=== PATIENT | female | born 1990 | race Caucasian/White ===

== ENCOUNTER 2020-04-01 10:01 | Emergency (ER) | payer OTHER, SELFPAY ==
[2020-04-01 10:18] VITALS: BP 131/86; PULSE 86; RESP 16; TEMP 36.8; O2SAT 100
--- NOTE | 2020-04-01 10:41 | ED.WOUNDLAC ---
HPI - Wound/Laceration General Chief Complaint: Wound/Laceration Stated Complaint: cut right 4th finger Time Seen by Provider: 04/01/20 10:41 Source: patient and RN notes reviewed Mode of arrival: ambulatory Limitations: no limitations History of Present Illness HPI narrative: This is a 29 years old female presents to the office for an evaluation of finger laceration prior to arrival. She accidentally cut her finger with a toe trimmer this morning. She able to move her finger. Denies any other injury/trauma. TD up to date. Related Data Home Medications Medication Instructions Recorded Confirmed norethindrone-e.estradiol-iron [Lo 1 tablet DAILY 04/01/20 04/01/20 Loestrin Fe] Allergies Allergy/AdvReac Type Severity Reaction Status Date / Time No Known Allergies Allergy Verified 04/01/20 10:06 Review of Systems Review of Systems: Narrative: CONSTITUTIONAL: Denies fever or feeling ill CARDIOVASCULAR: Denies palpitation RESPIRATORY: Denies dyspnea GASTROINTESTINAL: Denies nausea SKIN: reports cut to her fourth ring finger MUSCULOSKELETAL: Reports finger pain; however she able to move her finger NEUROLOGIC: Denies numbness. [facility] Family History Family History Father Hypertension Other Diabetes mellitus Family history of malignant neoplasm of breast in first degree relative Social History Social History Smoking status: Never smoker Alcohol intake: current Gender identity (if verbalized by the patient): Female Comments At time of signature, I agree with nursing past medical, surgical, social and family history. There is no relevant family history pertinent to the presenting complaint. Exam Narrative: Exam Narrative: GENERAL: This is a well-nourished, well-developed patient, in no apparent distress. NEURO: awake, alert, and oriented to person, place and time. There were no obvious focal neurologic abnormalities. Steady gait EXTREMITIES: left fourth finger, volar aspect at the distal joint noted gapping laceration, cap refill brisk. radial pulse intact. Hands and fingers with NROM. [place] Coma Scale Eye Opening: Spontaneous 4 [place]rika Coma Scale Motor: Obeys Commands 6 [place] Coma Scale Verbal: Oriented 5 Course Vital Signs Vital signs: Vital Signs Temperature 98.2 F 04/01/20 10:18 Pulse Rate 86 04/01/20 10:18 Respiratory Rate 16 04/01/20 10:18 Blood Pressure 131/86 04/01/20 10:18 Pulse Oximetry 100 04/01/20 10:18 Temperature 98.2 F 04/01/20 10:18 Pulse Rate 86 04/01/20 10:18 Respiratory Rate 16 04/01/20 10:18 Blood Pressure 131/86 04/01/20 10:18 Pulse Oximetry 100 04/01/20 10:18 Procedures Laceration Laceration 1: Date: 04/01/20 Time: 10:52 Site: upper extremity Side (If applicable): left Size (cm): 1.5 Description: irregular Depth: simple, single layer Local Anesthetic: lidocaine 1% Amount of anesthesia used (mL): 4 Pre-repair: wound explored, irrigated and other (no obvious tendon laceration or foreignbody) ====== Skin Level ====== Skin layer closed with: nylon Size (cm): 5-0 Number of sutures: 7 Technique: simple, interrupted ====== Subcutaneous Layer ====== ====== Muscle Layer ====== ====== Tendon Layer ====== Critical Care Time Critical Care Time Critical Care Time: No Discharge Plan Discharge Clinical Impression: Laceration Patient Disposition: Home, Self-Care Condition: Stable Instructions: Antibiotic Form Additional Instructions: -Keep the dressing clean and dry for 1-2days; then you may gently clean with soap and water whenever you take a shower; however no continuous water contact like dishes or swimming. Getting them too wet can slow down healing and raise your chance of getting an
== END 2020-04-01 11:32 | disposition home or self-care (01) ==
PROVIDERS: Emergency Provider Nurse Practitioner
DX: S61.214A Laceration without foreign body of right ring finger without damage to nail, initial encounter (principal); W29.3XXA Contact with powered garden and outdoor hand tools and machinery, initial encounter
CPT/HCPCS: 12001; 99212; G0463

== ENCOUNTER 2020-07-23 13:26 | Emergency (ER) | payer OTHER, SELFPAY ==
[2020-07-23 13:33] VITALS: BP 130/85; PULSE 83; RESP 16; TEMP 37.1; O2SAT 99
--- NOTE | 2020-07-23 13:39 | ED.EXTPRO ---
HPI - Extremity Problem General Chief complaint: Extremity Problem,Nontraumatic Stated complaint: rt thigh pain Time Seen by Provider: 07/23/20 13:39 Source: patient and RN notes reviewed Mode of arrival: ambulatory Limitations: no limitations History of Present Illness HPI Narrative: 29-year-old female presents with complaints of right medial-lower thigh pain intermittent redness and swelling for the past 4 days. Mireille says she was sitting at her work desk and noticed pain to RT inner lower thigh on Wednesday07/19/20. She has been running and working out (the [employer] workout). No treatment initially, then on Wednesday07/22/20 applied Icy hot without relief. Symptoms increased over the past 24 hours with intermittent redness and swelling. Denies radiation of pain. No numbness or tingling or bleeding. No loss of mobility. Exacerbating factor consist of bearing weight and palpation. Denies recent travel or long car rides. Denies history of DVT or PE. No chest pain or dyspnea. Remains active. LMP 07/20/20 on control. The patient reports she have not been diagnosed with COVID-19. The patient reports she is not waiting for the results of a COVID-19 lab test. The patient reports she do not have fever, chills, weakness, or fatigue. The patient reports she do not have a new or worsening cough or shortness of breath. Denies chest pain. The patient reports she do not have any rhinorrhea, congestion, sore throat, loss of taste, nausea, vomiting, abdominal pain, and diarrhea. Tolerating po intake well. Denies recent traveling. Denies concerns for COVID-19 or exposures been home with limited outdoor exposure except for essential household needs, work, and return home. At this time, patient is not suspected of having COVID-19. Some parts of this dictation were generated by voice recognition software and may contain typographical and/or grammatical inaccuracies. Related Data Home Medications Medication Instructions Recorded Confirmed norethindrone-e.estradiol-iron [Lo 1 tablet DAILY 04/01/20 04/01/20 Loestrin Fe] spironolactone 07/23/20 Allergies Allergy/AdvReac Type Severity Reaction Status Date / Time No Known Allergies Allergy Verified 04/01/20 10:06 Review of Systems Review of Systems: Narrative: CONSTITUTIONAL: Denies fever, chills, sweats. EYES: Denies visual changes, redness, discharge. ENT: Denies otalgia, rhinorrhea, congestion, sore throat. CARDIOVASCULAR: Denies chest pain, palpitations, edema. RESPIRATORY: Denies dyspnea, wheezing, cough. GASTROINTESTINAL: Denies abdominal pain, nausea, vomiting, diarrhea. GENITOURINARY: Denies dysuria, hematuria, abnormal discharge. SKIN: Complains right medial-lower thigh pain intermittent redness and swelling. Denies drainage or open areas. MUSCULOSKELETAL: Denies acute back pain or myalgia. Complains of RT medial lower thigh pain, intermittent swelling and redness. NEUROLOGIC: Denies numbness or focal weakness. PSYCHIATRIC: Denies anxiety or depression. All systems reviewed & are unremarkable except as noted in HPI and below. [facility] Past Medical History Medical History (Updated 07/24/20 @ 00:00 by Chapo De La Rosa) Acne delivery delivered Surgical History Surgical History (Updated 07/23/20 @ 14:21 by URIEL Mcintosh) H/O section X1 Family History Family History Father Hypertension Other Diabetes mellitus Family history of malignant neoplasm of breast in first degree relative Social History Social History (Updated 07/23/20 @ 14:21 by URIEL Mcintosh) Smoking status: Never smoker Tobacco type: cigarettes Second hand tobacco smoke exposure: No Alcohol intake: current Substance use: never Living arrangements: with family Occupation/Education: occupation Gender identity (if verbalized by the patient): Female Sexual Orientation (
== END 2020-07-23 14:13 | disposition home or self-care (01) ==
PROVIDERS: Emergency Provider Nurse Practitioner Family
DX: S70.361A Insect bite (nonvenomous), right thigh, initial encounter (principal); W57.XXXA Bitten or stung by nonvenomous insect and other nonvenomous arthropods, initial encounter; M79.651 Pain in right thigh
CPT/HCPCS: 99213; G0463

== ENCOUNTER → 2021-08-30 09:27 | Outpatient (CLI) | payer OTHER, SELFPAY ==
--- NOTE | ~2021-08-30 | US_ITS ---
US OB <= 14 weeks fetus DATE: 08/30/2021 09:48 INDICATION: Uncertain dates; gestational age determination TECHNIQUE: Real-time imaging and Doppler analysis COMPARISON: None FINDINGS: The uterus measures 9.4 centers height, 7.1 cm transverse and 8.1 cm AP dimension. Live mckeon intrauterine gestation. pole and yolk sac are demonstrated. heart rate of 170 bpm. [place]-rump length measures 4.0 cm, consistent with estimated gestational age of 10 weeks 6 days +/- 1 week; KHARI: 03/22/2022 Right ovary is not visualized. Left ovary measures 2.6 x 2.0 x 3.4 cm. No pelvic mass or abnormal pelvic fluid collection is detected. IMPRESSION: Estimated gestational age of 10 weeks 6 days +/- 1 week; KHARI: 03/22/2022 Reviewed, dictated and finalized at [facility]. Reviewed, dictated and finalized at [facility]. IMPRESSION: Estimated gestational age of 10 weeks 6 days +/- 1 week; KHARI: 2021
== END ==
PROVIDERS: Visit Provider Obstetrics & Gynecology
DX: Z36.87 Encounter for antenatal screening for uncertain dates (principal); Z3A.10 10 weeks gestation of pregnancy
CPT/HCPCS: 76801

== ENCOUNTER → 2021-10-28 10:27 | Outpatient (CLI) | payer OTHER, SELFPAY ==
--- NOTE | ~2021-10-28 | US_ITS ---
EXAMINATION: US OB /maternal detail DATE: 10/28/2021 11:06 INDICATION: Assess anatomy during second trimester TECHNIQUE: Multiple obstetric sonographic images performed. FINDINGS: There is a single living fetus in transverse lie with vertex to maternal left. The placenta is poste rior and low-lying extending to the margin of and appearing to bulge slightly across the internal cer vical os. Normal amniotic fluid volume. heart rate of 146 beats per minute. The following anatomy was identified as normal: Ventricles, choroid plexus, falx and cava septum pellucidum Cerebellum and cisterna magna Nuchal fold Upper lip Spine Heart Diaphragm Stomach Kidneys Bladder 3 vessel cord and cord insertion Bilateral upper and lower extremities including hands and feet The following biometric data were obtained: BPD: 4.4 cm -> 19 weeks 2 days Head circumference: 16.6 cm -> 19 weeks 2 days Abdominal circumference: 13.5 cm -> 19 weeks 0 days Femur length: 2.9 cm -> 19 weeks 0 days These measurements are concordant. Head circumference to abdominal circumference ratio: 1.23 (normal range 1.09-1.26). Estimated weight: 269 g (+/-) 40 g. or 9 oz. (+/-) 1 oz. IMPRESSION: 1. Single living fetus in transverse lie with head to maternal left and with heart rate of 146 bpm. 2. Biometric data concordant within 1 day of previously estimated gestational age by ultrasound of 19 weeks 2 day(s) with ultrasound estimated date of delivery (KHARI) of 03/22/2022 based upon prior ultras ound performed on 08/30/2021. Estimated weight is 30th percentile by Hadlock criteria when 03/22 is used as the KHARI. Please correlate with clinical information or earlier ultrasounds for most accurate KHARI. 3. Normal survey. 4. Low-lying placenta with appearance suggesting a marginal placenta previa. Recommend follow-up ultr asound during early third trimester . Reviewed, dictated and finalized at [facility]. SFER STATION ATTENDANT IMPRESSION: 1. Single living fetus in transverse lie with head to maternal left and with f etal heart rate of 146 bpm. 2. Biometric data concordant within 1 day of previously estimated gestational a ge by ultrasound of 19 weeks 2 day(s) with ultrasound estimated date of deliver y (KHARI) of 03/22/2022 based upon prior ultrasound performed on 08/30/2021. Estim ated weight is 30th percentile by Hadlock criteria when 03/22/2022 is used as the KHARI. Please correlate with clinical information or earlier ultrasounds for most accurate KHARI. 3. Normal survey. 4. Low-lying placenta with appearance suggesting a marginal placenta previa. Re commend follow-up ultrasound during early third trimester .
== END ==
PROVIDERS: Visit Provider Obstetrics & Gynecology Gynecology
DX: Z36.9 Encounter for antenatal screening, unspecified (principal); Z3A.19 19 weeks gestation of pregnancy; O44.42 Low lying placenta NOS or without hemorrhage, second trimester
CPT/HCPCS: 76805

== ENCOUNTER → 2021-11-24 13:02 | Outpatient (CLI) | payer OTHER, SELFPAY ==
--- NOTE | ~2021-11-24 | US_ITS ---
EXAMINATION: US OB limited DATE: 11/24/2021 13:20 INDICATION: Low lying placenta. Second trimester. TECHNIQUE: Real-time ultrasound of the pelvis was performed. COMPARISON: Ultrasound 10/28/2021 FINDINGS: There is a single fetus in breech presentation. The placenta is posterior, 1.1 cm from the cervix. F etal heart rate is 159 beats per minute (bpm). The amniotic fluid volume is subjectively normal. IMPRESSION: 1. Single living fetus in breech presentation. 2. Low lying placenta. Reviewed, dictated and finalized at [facility]. [place] PRODUCTS DIRECTOR
== END ==
PROVIDERS: Visit Provider Obstetrics & Gynecology Gynecology
DX: O44.42 Low lying placenta NOS or without hemorrhage, second trimester (principal); O32.1XX0 Maternal care for breech presentation, not applicable or unspecified; Z3A.00 Weeks of gestation of pregnancy not specified
CPT/HCPCS: 76815

== ENCOUNTER 2021-12-22 15:41 | Outpatient (CLI) | payer OTHER, SELFPAY ==
--- NOTE | ~2021-12-22 | US_ITS ---
EXAMINATION: US OB follow up DATE: 12/22/2021 16:16 INDICATION: Low lying placenta TECHNIQUE: Real-time ultrasound of the pelvis was performed. The interpreting radiologist was not pre sent for the study. COMPARISON: 11/24/2021 FINDINGS: There is a single living fetus in breech presentation. The placenta is posterior and 4.2 cm from the internal cervical os. cardiac activity and movement are noted. heart rate is 139 beats per minute (bpm). The amniotic fluid index is 14.5 cm (normal range: 9.5 cm to 22.6 cm) . The following biometric data were obtained: Biparietal diameter (BPD): 6.6 cm; head circumference (HC): 25.2 cm; abdominal circumference (AC): 23 .8 cm; femur length (FL): 4.8 cm. These measurements are concordant. Estimated weight is 1043 g +/- 156 g, which correlates with the 40th percentile when 03/22/2022 is used as estimated date of delivery. As single measurements, these parameters are each equal to the following estimated gestational ages w ith ranges of +/- 2 standard deviations: BPD: 26 weeks 4 days +/- 2 weeks 2 days. HC: 27 weeks 2 days +/- 2 weeks 0 days. AC: 28 weeks 1 days +/- 2 weeks 1 days. FL: 26 weeks 0 days +/- 2 weeks 1 days. estimated gestational age based solely on measurements from this exam is 27 weeks 0 days +/- 1 weeks 6 days. IMPRESSION: 1. Single living fetus in breech presentation. 2. Estimated weight is 1043 g +/- 156 g, which correlates with the 40th percentile when 03/22/20 22 is used as estimated date of delivery. 3. Normal placenta position. Reviewed, dictated and finalized at [facility]. FACTURING SUPERVISOR IMPRESSION: 1. Single living fetus in breech presentation. 2. Estimated weight is 1043 g +/- 156 g, which correlates with the 40th p ercentile when 03/22/2022 is used as estimated date of delivery. 3. Normal placenta position.
== END 2021-12-22 15:42 | disposition home or self-care (01) ==
PROVIDERS: Visit Provider Obstetrics & Gynecology Gynecology
DX: O44.42 Low lying placenta NOS or without hemorrhage, second trimester (principal); O32.1XX0 Maternal care for breech presentation, not applicable or unspecified; Z3A.00 Weeks of gestation of pregnancy not specified
CPT/HCPCS: 76816

== ENCOUNTER → 2022-03-09 13:26 | Outpatient (CLI) | payer OTHER, SELFPAY ==
--- NOTE | ~2022-03-09 | US_ITS ---
EXAMINATION: US OB follow up DATE: 03/09/2022 13:50 INDICATION: Size greater than dates during third trimester TECHNIQUE: Real-time ultrasound of the pelvis was performed. The interpreting radiologist was not pre sent for the study. COMPARISON: None. FINDINGS: There is a single living fetus in vertex presentation. The placenta is fundal. cardia c activity and movement are noted. heart rate is 155 beats per minute (bpm). The amniotic fluid index is 11.7 cm which is normal (normal range: 7.3 cm to 23.9 cm). The following biometric data were obtained: Biparietal diameter (BPD): 9.3 cm; head circumference (HC): 33.6 cm; abdominal circumference (AC): 34 .8 cm; femur length (FL): 7.2 cm. These measurements are concordant. Estimated weight is 3415 g +/- 512 g, which correlates with the 64th percentile when 03/22/2022 is used as estimated date of delivery. As single measurements, these parameters are each equal to the following estimated gestational ages w ith ranges of +/- 2 standard deviations: BPD: 38 weeks 0 days ( 34 weeks 6 days - 41 weeks 2 days). HC: 38 weeks 3 days ( 35 weeks 6 days - 41 weeks 1 days). AC: 38 weeks 5 days ( 35 weeks 5 days - 41 weeks 6 days). FL: 36 weeks 4 days ( 33 weeks 4 days - 39 weeks 5 days). estimated gestational age based solely on measurements from this exam is 38 weeks 0 days +/- 2 weeks 5 days. IMPRESSION: 1. Single living fetus in vertex presentation. 2. Estimated weight is 3415 g +/- 512 g, which correlates with the 64th percentile when 03/22/20 22 is used as estimated date of delivery. 3. Normal amniotic fluid index. Reviewed, dictated and finalized at [facility]. IMPRESSION: 1. Single living fetus in vertex presentation. 2. Estimated weight is 3415 g +/- 512 g, which correlates with the 64th p ercentile when 03/22/2022 is used as estimated date of delivery. 3. Normal amniotic fluid index.
== END ==
PROVIDERS: PCP Obstetrics & Gynecology Gynecology; Visit Provider Nurse Practitioner
DX: O36.63X0 Maternal care for excessive fetal growth, third trimester, not applicable or unspecified (principal); Z3A.00 Weeks of gestation of pregnancy not specified
CPT/HCPCS: 76816

== ENCOUNTER 2022-03-23 02:37 | Observation (INO) | payer BC, SELFPAY ==
[2022-03-23 02:45] VITALS: BMI 31.3
[2022-03-23 04:45] VITALS: BP 104/73; PULSE 87
--- NOTE | 2022-03-23 04:50 | OBADM ---
This patient, Mireille Finn, admitted to the OB room Labor/Delivery/Recovery 104 for observation. Patient/family oriented to hospital policies and general routines including ID bracelet, bed and alarms, visiting hours, pain management, procedures, bathroom and other care routines, personal items, smoking policy, room service/diet, and visiting hours. Patient/Family are encouraged to report perceived risks to care and to ask questions if they do not understand what they are told or what they should do.
[2022-03-23 05:00] VITALS: BP 112/66; PULSE 72
--- NOTE | 2022-03-26 08:24 | PM.OBTRLD ---
OB - Triage/Final Diagnosis Visit Information Reason for evaluation: threatened labor Comments/Additional reasons for admission: I have assessed the risk for this patient, Mireille Arcelia Finn, and determined that she would benefit from observation care.
== END 2022-03-23 05:10 | disposition home or self-care (01) ==
PROVIDERS: Admitting Provider Obstetrics & Gynecology Gynecology; Visit Provider Obstetrics & Gynecology
DX: O47.9 False labor, unspecified (principal); Z3A.00 Weeks of gestation of pregnancy not specified
CPT/HCPCS: G0378; G0379

== ENCOUNTER 2022-03-24 06:29 | Inpatient (IN) | payer BC, SELFPAY ==
[2022-03-24] VITALS (221 sets, daily range): BP systolic 73–180; BP diastolic 31–118; PULSE 26–244; TEMP 36–37.4; O2SAT 83–100; BMI 31.6
--- NOTE | 2022-03-24 06:29 | LDADM ---
This patient, Mireille Finn, was admitted to Labor/Delivery/Recovery 102 on 03/24/22 at 06:29. Plans for labor, pain management and were discussed with patient. Patient/family oriented to hospital policies and general routines including ID bracelet, bed and alarms, visiting hours, pain management, procedures, bathroom and other care routines, personal items, smoking policy, room service/diet and guest tray routines, security routines, and visiting hours. Patient/Family are encouraged to report perceived risks to care and to ask questions if they do not understand what they are told or what they should do. See OBIX for further documentation.
[2022-03-24] MEDS: LACTATED RINGERS 1,000 ML 125 ML IV CONT ×4 (07:14→21:44)
[2022-03-24] MEDS: AMPICILLIN 2 GM/NS 100 ML 2 GM/100 ML BAG IVPB (07:15)
[2022-03-24 07:21] LABS: Basophils Percent Auto 0.4 % (0.2-1.2); Eosinophils Absolute Auto 0.1 K/mm3 (0-0.3); Eosinophils Percent Auto 0.7 % (0-4.4); Hematocrit 36.8 % (37.0-47.0); Hemoglobin 12.5 g/dL (12.0-15.0); Immature Granulocyte Absolute 0.06 K/mm3 (0.00-0.031); Immature Granulocyte Percent A 0.5 % (0-0.5); Lymphocytes Absolute Auto 3.35 K/mm3 (0.9-3.2); Lymphocytes Percent Auto 29.7 % (18.3-44.2); Mean Corpuscular Volume 88.5 fl (80-100); Mean Platelet Volume 10.6 fl (7.4-10.4); Monocytes Absolute Auto 0.8 K/mm3 (0.1-0.6); Monocytes Percent Auto 7.3 % (2.6-8.5); Neutrophils Absolute Auto 6.9 K/mm3 (1.3-6.7); Neutrophils Percent Auto 61.4 % (45.5-73.1); Platelet Count Result 258 k/mm3 (150-375); Red Blood Count 4.16 M/mm3 (4.2-5.4); Red Cell Distribution Width 13.5 % (11.5-14.5); White Blood Count 11.3 K/mm3 (4.5-10.0)
--- NOTE | 2022-03-24 08:12 | WPDOBADMIT ---
Obstetrics - Admit Note Admission Note: record reviewed. No pertinent additions to the history and/or any subsequent changes in the physical findings that are not consistent with the expected course of the were found. Additions to the history and/or subsequent changes in the physical findings follow. patient has decided to try trial of labor MIL via AROM. Reviewed risks of uterine rupture with prior csection and risks of repeat csection. EFW less than prior infant at 80% and prior dilated to 6 cm with 9#5oz infant. Cervix 2/50/-2 very posterior. AROM. FHTs reactive.
[2022-03-24 09:46] LABS: Rapid Plasma Reagin Non-Reactive (NonReactive)
[2022-03-24] MEDS: AMPICILLIN 1 GM/NS 50 ML 1 GM/50 ML BAG IVPB ×3 (11:15→19:59)
--- NOTE | 2022-03-24 11:29 | WPDANESEPP ---
Anes - Eval Pre Procedure Procedure: Labor Pain Management Date/Time: 03/24/22 11:29 Surgeon: Nayana Preop Diagnosis: pain during labor Pre Op Diagnosis: Induction of Labor Patient Data Age: 31 Gender: F Height: 1.68 m Weight: 89 kg Last Vital Signs Temp 97.9 F 03/24/22 10:00 Pulse 85 03/24/22 10:31 BP 104/91 H 03/24/22 10:31 Allergies Allergy/AdvReac Type Severity Reaction Status Date / Time No Known Allergies Allergy Verified 03/24/22 07:09 Home Medications Medication Instructions Recorded Confirmed Type fluticasone propionate 2 spray INTRANASAL DAILY 02/28/22 03/24/22 History prenat.vits,vero,vyw-smku-htmce 1 tablet PO DAILY 02/28/22 03/24/22 History ergocalciferol (vitamin D2) 1,200 unit PO WEEKLY 03/24/22 03/24/22 History Laboratory Tests 03/24/22 03/24/22 03/24/22 06:57 06:57 06:57 WBC 11.3 K/mm3 H K/mm3 (4.5-10.0) RBC 4.16 M/mm3 L M/mm3 (4.2-5.4) Hgb 12.5 g/dL g/dL (12.0-15.0) Hct 36.8 % L % (37.0-47.0) MCV 88.5 fl fl (80-100) MCH 30.0 pg pg (26-34) MCHC 34.0 g/dl g/dl (32-36) RDW 13.5 % % (11.5-14.5) Plt Count 258 k/mm3 k/mm3 (150-375) MPV 10.6 fl H fl (7.4-10.4) Immature Gran % (Auto) 0.5 % % (0-0.5) Neut % (Auto) 61.4 % % (45.5-73.1) Lymph % (Auto) 29.7 % % (18.3-44.2) [place] % (Auto) 7.3 % % (2.6-8.5) Eos % (Auto) 0.7 % % (0-4.4) Baso % (Auto) 0.4 % % (0.2-1.2) Lymph # (Auto) 3.35 K/mm3 H K/mm3 (0.9-3.2) [place] # (Auto) 0.8 K/mm3 H K/mm3 (0.1-0.6) Eos # (Auto) 0.1 K/mm3 K/mm3 (0-0.3) Baso # (Auto) 0.0 K/mm3 K/mm3 (0.0-0.1) Abs Immat Gran (auto) 0.06 K/mm3 H K/mm3 (0.00-0.031) Absolute Neuts (auto) 6.9 K/mm3 H K/mm3 (1.3-6.7) Absolute Nucleated RBC 0.0 K/mm3 K/mm3 (0.0-0.012) Nucleated RBC % 0.0 % % (0.0-0.2) RPR Non-reactive (NonReactive) Blood Type O Positive Antibody Screen Negative Patient hx anesthesia problems: none Family hx anesthesia problems: none Results Review: All pre-operative results and documents have been reviewed as part of the pre-operative evaluation. [facility] Past Medical History Medical History (Updated 03/24/22 @ 11:29 by Theodora Harrington CRNA) Acne delivery delivered Surgical History Surgical History H/O section X1 Family History Family History Father Hypertension Grandparent Diabetes mellitus Mother Family history of malignant neoplasm of breast in first degree relative Social History Social History Smoking status: Never smoker Tobacco type: cigarettes Second hand tobacco smoke exposure: No Alcohol intake: current Substance use: never Gender identity (if verbalized by the patient): Female Sexual Orientation (if Verbalized by the Patient): Straight or Heterosexual Spiritual care concerns: No Exam Day of Procedure 03/24/22 11:29 Patient weight: obese Neurological: alert and oriented
[2022-03-24] MEDS: PHENYLEPHRINE 1,000 MCG/10 ML SYRINGE 100 MCG IV PUSH ×2 (13:02→13:13)
[2022-03-24] MEDS: SODIUM CHLORIDE 0.9% IV 200 ML 600 ML I-UTERINE (21:38)
[2022-03-25] VITALS (47 sets, daily range): BP systolic 84–109; BP diastolic 45–73; PULSE 59–115; RESP 15–18; TEMP 36.2–37.1; O2SAT 92–100
[2022-03-25] MEDS: ceFAZolin SODIUM 1 GM VIAL 2 GM IV PUSH (00:21)
--- NOTE | 2022-03-25 00:57 | W.PM.PROC2 ---
Procedure Note - Detailed Date of Procedure 03/25/22 Pre-op Diagnosis Induction of Labor At 40 weeks with artificial rupture of Membranes previous LTCS bradycardic episode and failure to progress Post-op Diagnosis Same Procedure Performed repeat low-transverse section Surgeon Raquel Kraus MD Anesthesia Epidural Findings female in left occiput posterior position with a shoulder cord noted; Apgars of 8 at 1 and 9 at 5; Weight of 7 lb 8oz; normal-appearing tubes ovaries and uterus; bladder was very edematous Description of Procedure after being called with a 10minute bradycardic episode and stalled at 8cm it was decided to proceed with repeat section. on my arrival, the patient is in the operating room being dosed with her epidural that was previously placed. heart tones are 110's. the patient is prepped and draped in the usual sterile fashion. A Pfannenstiel skin incision was made with a scalpel and carried down to the underlying layer of fascia. Fascia was nicked in the midline and extended laterally using blunt traction. The peritoneum has a hole and this is extended with blunt traction. The bladder blade is placed in the vesicouterine peritoneum tented and entered with Metzenbaum scissors. The incision was extended laterally and the bladder flap created digitally. The lower uterine segment was incised in a transverse fashion and extended laterally using blunt traction. The infant was brought up into the incision noted to be in the open position. Cord around the shoulder was also noted at this time. The was fully delivered and the cord detangled. Cord was clamped And cut and the handed to the waiting nursery nurse and construction flagger. The cord gases and cord blood were taken. The placenta was removed using manual traction. The uterus is cleared of all clots and debris and exteriorized. The uterine incision was closed using 0 Monocryl in a running locked fashion. The same suture was used to imbricate and several [id number] sutures are required in the left angle for hemostasis. The cul-de-sac is irrigated and the incision again inspected and noted to be hemostatic. The fascia was closed using 0 Vicryl in a running fashion. Subcutaneous tissues were irrigated and made hemostatic using Bovie cautery. Skin is closed using 4-0 Vicryl in a subcuticular fashion. Dermaflex was placed over the incision. patient is given Ancef prior to incision. Sponge, needle, and instrument counts are correct per the OR staff. Estimated Blood Loss 510 Drains Yes ( [place]) Packing No Pathology Yes ( placenta) Complications No immediate complications Condition Stable Disposition Floor
--- NOTE | 2022-03-25 01:03 | PM.OBDSVD ---
DS: Admitting Diagnosis Discharge Date 03/27/22 Admitting Diagnosis IUP 40 2/7 wks MIL via AROM Failure to progress bradycardic episode DS: Discharge Diagnosis Discharge Diagnosis (1) delivery delivered: Code(s): O82 - Encounter for delivery without indication Status: Acute (2) H/O section: Code(s): Z98.891 - History of uterine scar from previous surgery Status: Acute (3) Failure to progress in labor: Code(s): O62.2 - Other uterine inertia Status: Acute (4) bradycardia: Status: Acute OB - DS: Summary OB Procedures : NST and Ultrasound OB Procedures Intrapartum: low cervical, transverse OB Procedures: : None Peripartum Data Delivery Method: Section Procedures: Procedures Operation Date: 03/24/22 07:30 <No data on this case meets the specified criteria> Status at Discharge Functional status at discharge: independent ambulation Overall status at discharge: patient is progressing back to baseline Time Spent with Patient Time attestation: Total time spent providing and/or coordinating discharge services: DS: Data Data Completed and Pending Labs on day of discharge: Labs from last 24 hours 03/24/22 03/24/22 03/24/22 06:57 06:57 06:57 WBC 11.3 H RBC 4.16 L Hgb 12.5 Hct 36.8 L MCV 88.5 MCH 30.0 MCHC 34.0 RDW 13.5 Plt Count 258 MPV 10.6 H Immature Gran % (Auto) 0.5 Neut % (Auto) 61.4 Lymph % (Auto) 29.7 [place] % (Auto) 7.3 Eos % (Auto) 0.7 Baso % (Auto) 0.4 Lymph # (Auto) 3.35 H [place] # (Auto) 0.8 H Eos # (Auto) 0.1 Baso # (Auto) 0.0 Abs Immat Gran (auto) 0.06 H Absolute Neuts (auto) 6.9 H Absolute Nucleated RBC 0.0 Nucleated RBC % 0.0 RPR Non-reactive Blood Type O Positive Antibody Screen Negative Discharge Plan Discharge Attending physician on discharge: Raquel Kraus Discharging Clinician: Raquel Kraus Anticipated Discharge Date/Time: 03/28/22 01:06 Patient Disposition: Home, Self-Care Activity: may shower, may drive after 2 weeks and pelvic rest Diet: regular Wound Care Instructions: incision open to air Patient Instructions: Antibiotic Form Stand Alone Forms: General Discharge Information Follow-up/Referrals: Raquel Kraus MD [Physician] - 1 Week (and 6 wk) Discharge Medications: New norethindrone (contraceptive) 0.35 mg tablet 0.35 mg PO DAILY Qty: 84 RF: 3 Continued fluticasone propionate 50 mcg/actuation [place],Suspension 2 spray INTRANASAL DAILY RF: 0 prenat.vits,vero,[id number]-yeax-zkhdh Tablet 1 tablet PO DAILY RF: 0 ergocalciferol (vitamin D2) 1,250 mcg (50,000 unit) capsule 1,200 unit PO WEEKLY RF: 0 Date of admission: 03/24/22 06:29 Primary Care Provider: PHYSICIAN,CHILD WELFARE SPECIALIST Admitting Provider: Raquel Kraus Attending physician on admission: Raquel Kraus Condition: Stable
[2022-03-25] MEDS: OXYTOCIN 30 UNITS/NS 500 ML 30 UNITS/500 ML BAG 125 UNITS IV CONT (01:49)
[2022-03-25] MEDS: MORPHINE SULFATE INJ (*CRX) 10 MG/ML AMP 2 MG IV PUSH ×3 (02:00→03:08)
--- NOTE | 2022-03-25 03:32 | ADMGEN ---
This patient, Mireille Finn, was admitted to OB 2nd Floor Room 278-00. Patient/family oriented to hospital policies and general routines including ID bracelet, bed and alarms, visiting hours, pain management, procedures, bathroom and other care routines, personal items, smoking policy, room service/diet, and visiting hours. Information on how to activate the Rapid Response Team has been discussed. Patient/Family are encouraged to report perceived risks to care and to ask questions if they do not understand what they are told or what they should do.
[2022-03-25] MEDS: DEXTROSE 5%/0.45% SOD CHL 1,000 ML 125 ML IV CONT (06:03)
[2022-03-25] MEDS: HYDROcodone/acetaminophen (*CRX) 5-325 MG TABLET 1 TAB PO ×3 (06:04→15:23)
[2022-03-25] MEDS: LANOLIN (LANSINOH) 7.5 GM CREAM 1 APPLIC TOPICAL (06:04)
[2022-03-25] MEDS: IBUPROFEN 600 MG TABLET PO ×3 (06:05→22:07)
[2022-03-25] MEDS: MULTIVIT/MIN/PREN/FOL AC/IRON TABLET 1 TAB PO (09:00)
[2022-03-25] MEDS: DOCUSATE SODIUM 100 MG CAPSULE PO (10:18)
[2022-03-25] MEDS: SIMETHICONE 80 MG TAB.CHEW PO ×3 (10:18→22:05)
--- NOTE | 2022-03-25 11:52 | P.PNOB_ITS ---
OB - PN: Subj Subjective Date/time seen: 03/25/22 0650 Patient comments: no complaints and pain well controlled baby status: doing well and nursing well [place] feeding status: exclusively breast feeding OB - PN: Obj Data Labs CBC & Chem 7: 03/24/22 06:57 OB - PN A/P Plan day: 0 Plan: routine care Time Spent With Patient Time: Total time spent is greater than 50% in coordination of care (as documented) at patient's floor/unit and/or counseling patient: Review of Systems 2 Review of Systems: All systems reviewed & are unremarkable except as noted in HPI and below Constitutional: Constitutional: Reports as per HPI ENT: Reports system reviewed and no additional complaints, except as documented Respiratory: Respiratory: Reports as per HPI Exam Const: Orientation/consciousness: patient oriented x3 Limitations: no limitations Resp: Effort & Inspection: normal respiratory effort and able to speak in complete sentences Auscultation: clear to auscultation bilaterally Cardio: Rate: regular rate Peripheral pulses: Peripheral pulses 2+ throughout GI: Inspection: normal to inspection Auscultation: normal bowel sounds : General: Yes bladder normal to palpation Bimanual exam- vagina & uterus: bladder normal to palpation Other: Fundus firm. [place] draining clear yellow urine. Skin: General skin exam: normal color Other: Incision CDI. no drainage. Open to air. Neuro: General: patient oriented x3 Cognition (Neuro): normal cognition Speech: normal speech Extrem: General: normal to inspection Psych: Appearance: grossly normal Mental Status: mental status grossly n ormal Speech and movement: Normal speech and movement present Affect: normal affect Attitude: cooperative Thought process: Normal thought process present
--- NOTE | 2022-03-25 12:41 | PC.NURSE ---
[id number] Introductions were made, then consulted with patient to assess needs related to . Mother led the conversation with her experience feeding her so far. Mother works well with her with encouragement and education. Encouraged understanding of the benefits of skin to skin (unwrapping and placing vertically on her chest), responsive feeding and how to watch for early feeding signs, frequency of feeding on demand about every 8-12 times in 24 hours (every 2-3 hours), milk production, duration of feeding, signs of adequate intake/output and how to record on the feeding sheet. Reviewed positioning and ear, shoulder, hip alignment, supporting the breast, asymmetrical latch (off-center), and leading with the chin with a big open side gape. Infant latched optimally to the left breast in cross cradle position. Encouraged stimulating to keep drinking at the breast, maintaining a deeper latch, and good positioning to improve latch. Education given to mother of how to visualize suck/swallow ratios and drinking at the breast. Infant was able to maintain latch without discomfort to mother. Nipple care reviewed with optimal latch and good positioning. Reviewed good handwashing when or touching the breast/nipples to prevent infection. Resources used to facilitate learning were used with the [visual handouts/mom and baby guide. Mother voiced understanding of responsive feedings, stimulating with skin to skin, hand expressed colostrum, touch, talking to infant to encourage if it has been 2 -3 hours since the start of the last , to call if infant does not latch or there is discomfort with .
[2022-03-26] MEDS: HYDROcodone/acetaminophen (*CRX) 5-325 MG TABLET 1 TAB PO ×3 (00:17→16:33)
[2022-03-26 04:20] LABS: Basophils Absolute Auto 0.1 K/mm3 (0.0-0.1); Basophils Percent Auto 0.3 % (0.2-1.2); Eosinophils Absolute Auto 0.2 K/mm3 (0-0.3); Eosinophils Percent Auto 1.1 % (0-4.4); Hematocrit 31.5 % (37.0-47.0); Immature Granulocyte Absolute 0.12 K/mm3 (0.00-0.031); Immature Granulocyte Percent A 0.7 % (0-0.5); Lymphocytes Absolute Auto 4.13 K/mm3 (0.9-3.2); Lymphocytes Percent Auto 23.7 % (18.3-44.2); Mean Corpuscular HGB Conc 31.7 g/dl (32-36); Mean Corpuscular Hemoglobin 29.4 pg (26-34); Mean Corpuscular Volume 92.6 fl (80-100); Mean Platelet Volume 10.5 fl (7.4-10.4); Monocytes Absolute Auto 1.4 K/mm3 (0.1-0.6); Monocytes Percent Auto 7.8 % (2.6-8.5); Neutrophils Absolute Auto 11.6 K/mm3 (1.3-6.7); Neutrophils Percent Auto 66.4 % (45.5-73.1); Platelet Count Result 214 k/mm3 (150-375); Red Cell Distribution Width 14.2 % (11.5-14.5); White Blood Count 17.5 K/mm3 (4.5-10.0)
--- NOTE | 2022-03-26 07:18 | PM.OBPNVD ---
OB - PN: Subj Subjective Date/time seen: 03/26/22 07:18 Patient comments: no complaints and pain well controlled baby status: doing well OB - PN: Obj Data Labs CBC & Chem 7: 03/26/22 03:55 Labs: Laboratory Results - last 24 hr 03/26/22 03:55 WBC 17.5 H RBC 3.40 L Hgb 10.0 L Hct 31.5 L MCV 92.6 MCH 29.4 MCHC 31.7 L RDW 14.2 Plt Count 214 MPV 10.5 H Immature Gran % (Auto) 0.7 H Neut % (Auto) 66.4 Lymph % (Auto) 23.7 [place] % (Auto) 7.8 Eos % (Auto) 1.1 Baso % (Auto) 0.3 Lymph # (Auto) 4.13 H [place] # (Auto) 1.4 H Eos # (Auto) 0.2 Baso # (Auto) 0.1 Abs Immat Gran (auto) 0.12 H Absolute Neuts (auto) 11.6 H Absolute Nucleated RBC 0.0 Nucleated RBC % 0.0 OB - PN A/P Plan day: 1 Plan: routine care Time Spent With Patient Time: Total time spent is greater than 50% in coordination of care (as documented) at patient's floor/unit and/or counseling patient: Exam Narrative: inc c/d/i : Bimanual exam- vagina & uterus: other (Uterus firm, nt @U)
[2022-03-26 07:30] VITALS: BP 99/52; PULSE 86; RESP 16; TEMP 36.8; O2SAT 99
[2022-03-26] MEDS: IBUPROFEN 600 MG TABLET PO ×2 (08:53→16:31)
[2022-03-26] MEDS: SIMETHICONE 80 MG TAB.CHEW PO ×2 (08:53→16:31)
[2022-03-26] MEDS: MULTIVIT/MIN/PREN/FOL AC/IRON TABLET 1 TAB PO (08:54)
[2022-03-26] MEDS: FLUTICASONE PROPIONATE 0.05% NA SPR 16 GM BTL (*BKC) 2 SPRAY NASAL (08:54)
[2022-03-26] MEDS: DOCUSATE SODIUM 100 MG CAPSULE PO (08:54)
[2022-03-26 09:36] VITALS: PULSE 86; RESP 16; O2SAT 99
--- NOTE | 2022-03-26 10:35 | WPDANLDPN2 ---
Anes-Prog Note L&D Date/Time: 03/26/22 10:35 Comfortable throughout: section Neuraxial method: epidural Epidural/Spinal procedure site: clean & non-tender Neuro status: Neuro function grossly intact. Cardiovascular status: normal Respiratory status: normal Airway patency: baseline Mental status: baseline Post-Op hydration status: normal Vital Signs: Last Vital Signs Temp 36.8 C 03/26/22 07:30 Pulse 86 03/26/22 09:36 Resp 16 03/26/22 09:36 BP 99/52 L 03/26/22 07:30 Pulse Ox 99 03/26/22 09:36 Pain score (VAS): 2 I/O: Intake & Output 03/25/22 03/26/22 03/26/22 23:59 07:59 15:59 Intake Total 480 1000 240 Output Total 800 400 Balance -320 600 240 Post-procedural complaints: none Patient feedback: Patient satisfied with anesthetic care.
--- NOTE | 2022-03-26 11:11 | PC.NURSE ---
0874 - Mother led the conversation with her experience and plan to feed her so far and her ability to independently latch optimally without discomfort and baby cluster fed last night. Reminded parents to use good handwashing technique to prevent infection. Mother is feeding appropriately for growth of and understands stimulating infant to eat if needed. has had appropriate feedings in the last 24 hours meets the outcomes for weight, output and jaundice at this time. Mother states she is confident to continue effectively her infant at home or when to call for assistance and denies any additional assistance or education at this time. Reinforced understanding of milk production, transition of milk, signs of adequate intake, prevention/relief of engorgement, responsive after visualizing feeding cues, the different methods of stimulating infant to breastfeed 2-3 hours after the start of the last feeding, community resources, medication information reviewed per [employer] and when to call a provider using the resource of the mom and baby guide/[facility] website. Mother voiced understanding of the education shared. Reported to the primary RN.
--- NOTE | 2022-03-26 13:29 | PC.NURSE ---
[id number] Consulted with patient to assess needs related to . Mother led conversation with her experience with feeding baby so far. Mother works well with her with encouragement. Reviewed working with , breast, nipples and how to protect the nipples with an optimal deep latch, good positioning, and good hand washing. Encouraged understanding the benefits of skin to skin, responding to feeding cues, frequencies of feeding 8-12 times in 24 hours (approximately 2-3 hours), duration of feedings, milk production, intake/output feeding sheet and signs of adequate intake encouraging swallowing at the breast. Reviewed positioning and alignment, supporting breast, off-centered (asymmetrical latch) and leading with the chin with big open wide gape. latched optimally to the left breast in football position. Education given to mother of how to visualize suck/swallow ratios and drinking at the breast. Infant was able to maintain latch without discomfort to mother. Nipple care reviewed with optimal latch and good positioning, comfort, healing with warm, wet washcloth to rinse breast, then leave open to air-dry, colostrum may be left on nipples to dry but have clean hands when touching the nipple/breast as needed. Resources used to facilitate learning were used from the mom and baby guide. Mother voiced understanding of the education shared, calling for assistance if the does not latch or if there is discomfort with . Reported to the primary RN.
--- NOTE | 2022-03-26 16:26 | WPDANLDNPN2 ---
Anes-Prog Note L&D-Neuraxial Date/Time: 03/26/22 16:26 Neuraxial medications: epidural PF morphine Opiod-related complaints: none Patient feedback: Patient satisfied with post-operative pain management.
[2022-03-26 20:08] VITALS: BP 123/77; PULSE 98; RESP 18; TEMP 36.3; O2SAT 100
[2022-03-27] MEDS: IBUPROFEN 600 MG TABLET PO ×2 (02:25→08:20)
[2022-03-27] MEDS: SIMETHICONE 80 MG TAB.CHEW PO (02:25)
--- NOTE | 2022-03-27 07:33 | PM.OBPNVD ---
OB - PN: Subj Subjective Date/time seen: 03/27/22 07:33 Patient comments: no complaints and pain well controlled baby status: doing well OB - PN: Obj Data Labs CBC & Chem 7: 03/26/22 03:55 OB - PN A/P Plan day: 2 Plan: routine care, discharge home, follow up 6 weeks (and 1 wk) and other (micronor for bc) Time Spent With Patient Time: Total time spent is greater than 50% in coordination of care (as documented) at patient's floor/unit and/or counseling patient: Exam Narrative: inc c/d/i : Bimanual exam- vagina & uterus: other (Uterus firm, nt @U)
[2022-03-27 07:50] VITALS: BP 117/77; PULSE 78; RESP 16; TEMP 36.6; O2SAT 100
[2022-03-27] MEDS: MULTIVIT/MIN/PREN/FOL AC/IRON TABLET 1 TAB PO (10:07)
[2022-03-27] MEDS: DOCUSATE SODIUM 100 MG CAPSULE PO (10:07)
--- NOTE | 2022-03-27 12:48 | PC.NURSE ---
1008 - Mother led the conversation with her experience and plan to feed her so far and her ability to independently latch optimally without discomfort. Mother states infant still cluster feeds but less than the night before. Mother is feeding appropriately for growth of infant and understands stimulating to eat if needed. has had appropriate feedings in the last 24 hours meets the outcomes for weight, output and jaundice at this time. Mother states she is confident to continue effectively her infant at home or when to call for assistance and denies any additional assistance or education at this time. Reinforced understanding of milk production, transition of milk, signs of adequate intake, prevention/relief of engorgement, responsive after visualizing feeding cues, the different methods of stimulating to breastfeed 2-3 hours after the start of the last feeding, community resources, medication information reviewed per [employer] and when to call a provider using the resource of the mom and baby guide/[facility] website. Mother voiced understanding of the education shared.
[2022-03-28 07:45] VITALS: BP 129/80; PULSE 66; RESP 20; TEMP 36.9; O2SAT 98
--- NOTE | 2022-03-31 16:40 | P.HP_ITS ---
H&P: HPI History of Present Illness Date/Time: 03/31/22 16:40 Chief Complaint: intolerance of labor Narrative: 31 yo at 40 weeks EGA here for MIL via AROM. Patient with decent progress but developed decelerations and stalled progress. It was recommended to proceed with csection and patient agreed. uncomplicated to this point. labs: O+; RPR -; HepBSAg -; HIV -; Rubella immune; and GBS +. [facility] Past Medical History Medical History (Updated 03/31/22 @ 16:46 by Raquel Kraus MD) Acne delivery delivered Surgical History Surgical History (Updated 03/25/22 @ 01:05 by Raquel Kraus MD) H/O section X1 Family History Family History Father Hypertension Grandparent Diabetes mellitus Mother Family history of malignant neoplasm of breast in first degree relative Social History Social History Smoking status: Never smoker Tobacco type: cigarettes Second hand tobacco smoke exposure: No Alcohol intake: current Substance use: never Gender identity (if verbalized by the patient): Female Sexual Orientation (if Verbalized by the Patient): Straight or Heterosexual Spiritual care concerns: No Meds Home Medications and Allergies Home Medications Medication Instructions Recorded Confirmed Type fluticasone propionate 50 2 spray intranasal DAILY 02/28/22 03/24/22 History mcg/actuation nasal spray,suspension prenat.vits,vero,[id number] 1 tablet PO DAILY 02/28/22 03/24/22 History ergocalciferol (vitamin D2) 1,250 1,200 unit PO WEEKLY 03/24/22 03/24/22 History mcg (50,000 unit) capsule norethindrone (contraceptive) 0.35 0.35 mg PO DAILY #84 tabs 03/27/22 Rx mg tablet Allergies Allergy/AdvReac Type Severity Reaction Status Date / Time No Known Allergies Allergy Verified 03/24/22 07:09 Exam Const: General: healthy appearing and alert Orientation/consciousness: patient oriented x3 GI: GI Palp: Yes Soft to palpation and No Tenderness to palpation present (GI) Neuro: General: patient oriented x3 Assessment and Plan Assessment and plan (1) 40 weeks gestation of : Code(s): Z3A.40 - 40 weeks gestation of Status: Acute (2) bradycardia: Status: Acute Assessment and Plan: Proceeded with repat csection (3) Failure to progress in labor: Code(s): O62.2 - Other uterine inertia Status: Acute (4) H/O section: Code(s): Z98.891 - History of uterine scar from previous surgery Status: Acute
== END 2022-03-27 10:15 | disposition home or self-care (01) | DRG 788 ==
LOC: ANHLDR 03-25 01:06 → ANHOB2 03-25 03:36
PROVIDERS: Admitting Provider Obstetrics & Gynecology Gynecology; Visit Provider Obstetrics & Gynecology Gynecology
PROC: 10D00Z1 Extraction of Products of Conception, Low, Open Approach (ICD-10-PCS; CPT 59514; principal; 2022-03-25 00:10)
DX: O34.219 Maternal care for unspecified type scar from previous cesarean delivery (principal); O62.2 Other uterine inertia; O76 Abnormality in fetal heart rate and rhythm complicating labor and delivery; O69.2XX0 Labor and delivery complicated by other cord entanglement, with compression, not applicable or unspecified; O12.04 Gestational edema, complicating childbirth; O99.824 Streptococcus B carrier state complicating childbirth; Z3A.40 40 weeks gestation of pregnancy; Z37.0 Single live birth
CPT/HCPCS: 36415; 85025; 86592; 86850; 86900; 86901; 88307; A9270; J0290; J0690; J2270; J2274; J2370; J2405; J2590; J2795; J7030; J7120

== ENCOUNTER → 2023-09-17 12:57 | Outpatient (CLI) | payer BC, SELFPAY ==
--- NOTE | ~2023-09-17 | MM_ITS ---
EXAMINATION: MM screening sherwin BI w jimmy HISTORY: Screening TECHNIQUE: Craniocaudal and mediolateral oblique 3-D tomosynthesis images were obtained and synthetic 2-D images were generated. CAD analysis was submitted and interpreted. COMPARISON: No prior mammogram is available for comparison at this institution. BREAST PARENCHYMAL COMPOSITION: There are scattered areas of fibroglandular density. FINDINGS: There is no evidence of suspicious mass, calcification, or architectural distortion to sugg est malignancy in either breast. There has been no suspicious interval change. IMPRESSION: 1. No mammographic evidence of malignancy. 2. Recommend routine screening mammography in one year. BI-RADS Category 1: Negative Reviewed, dictated and finalized at location A. VERY TRUCK DRIVER HEAVY
== END ==
PROVIDERS: PCP Advanced Practice Midwife; Visit Provider Advanced Practice Midwife
DX: Z12.31 Encounter for screening mammogram for malignant neoplasm of breast (principal); Z80.3 Family history of malignant neoplasm of breast
CPT/HCPCS: 77063; 77067

== ENCOUNTER 2024-01-22 11:40 | Emergency (ER) | payer BC, SELFPAY ==
[2024-01-22 12:01] VITALS: BP 127/90; PULSE 90; RESP 16; TEMP 36.4; O2SAT 100
--- NOTE | 2024-01-22 12:22 | ED.URI ---
HPI - URI/Sore Throat General Chief Complaint: Upper Respiratory Infection Stated Complaint: Severe Sinus/eye issue Time Seen by Provider: 01/22/24 12:22 Source: patient Mode of arrival: ambulatory Limitations: no limitations History of Present Illness HPI Narrative: 33-year-old female presents with complaint of sinus pressure, nasal congestion, sinus congestion, postnasal drainage and intermittent sore throat for the past 8-9 days. Using a allergy nasal spray prescribed by her primary care physician, cannot remember the name. Also reports that she recently started taking Sudafed. Woke up this morning was worsening of her symptoms with redness and swelling to left eye. All systems reviewed and negative except as noted above. Related Data Home Medications Medication Instructions Recorded Confirmed fluticasone propionate 50 2 spray intranasal DAILY 02/28/22 01/22/24 mcg/actuation nasal spray,suspension ergocalciferol (vitamin D2) 1,250 1,200 unit PO WEEKLY 03/24/22 01/22/24 mcg (50,000 unit) capsule norethindrone 1 mg-ethinyl 1 tablet PO DAILY 06/08/23 01/22/24 estradiol 10 mcg (24)-iron 10 mcg(2) tablet (Lo Loestrin Fe) spironolactone 100 mg tablet 100 mg PO DAILY 06/08/23 01/22/24 Allergies Allergy/AdvReac Type Severity Reaction Status Date / Time No Known Allergies Allergy Verified 01/22/24 11:55 Review of Systems Review of Systems: CONSTITUTIONAL: Denies fever, chills, or sweats. EYES: Denies visual changes reports redness redness, swelling and discharge left eye. ENT: Reports rhinorrhea, congestion, sore throat, sinus pressure. Denies otalgia. CARDIOVASCULAR: Denies chest pain, palpitations, or edema. RESPIRATORY: Denies cough or dyspnea. GASTROINTESTINAL: Denies abdominal pain, nausea, vomiting, or diarrhea. GENITOURINARY: Denies dysuria or hematuria. SKIN: Denies rash or itching. MUSCULOSKELETAL: Denies back pain, joint pain, or myalgia. NEUROLOGIC: Denies headache, numbness, or weakness. PSYCHIATRIC: Denies anxiety or depression. All other systems reviewed are negative, except as documented in HPI. [facility] Past Medical History Medical History (Updated 01/23/24 @ 00:01 by Background Daemon) Acne delivery delivered Surgical History Surgical History H/O section X1 Family History Family History Father Hypertension Grandparent Diabetes mellitus Mother Family history of malignant neoplasm of breast in first degree relative Social History Social History (Updated 06/08/23 @ 10:16 by Jeffrey Tam, DEAN) Smoking status: Never smoker Second hand tobacco smoke exposure: No Alcohol intake: current Alcohol use details: social drinker Substance use: never Lack of Transportation: No Lack of Food: Never True Current Housing: I Have Housing Concerned About Future Housing: No Difficulty Paying Gas/Electric Bills: No Difficulty Paying for Meds: No Currently Unemployed: No Education: Master's Degree or Higher Difficulty w/ Childcare or Family Care: No Living arrangements: with family Occupation/Education: occupation Gender identity (if verbalized by the patient): Female Sexual Orientation (if Verbalized by the Patient): Straight or Heterosexual Spiritual care concerns: No Comments At time of signature, agree with nursing past medical, surgical, social and family history. There is no relevant family history pertinent to the presenting complaint. Exam Narrative: GENERAL: This is a well-nourished, well-developed patient, in no apparent distress. HEAD: normocephalic, atraumatic. EYES: PERRL. Sclera And conjunctiva erythematous to left eye. Crusting to the eyelashes. Vision is grossly intact. EARS: External ears normal, auditory canals clear and without drainage, TMs normal without perforatio
== END 2024-01-22 12:36 | disposition home or self-care (01) ==
PROVIDERS: Emergency Provider Nurse Practitioner Family
DX: J01.90 Acute sinusitis, unspecified (principal); H10.32 Unspecified acute conjunctivitis, left eye
CPT/HCPCS: 99213; G0463

== ENCOUNTER 2024-12-14 11:53 | Outpatient (CLI) | payer BC, SELFPAY ==
--- NOTE | ~2024-12-14 | US_ITS ---
EXAMINATION: US thyroid DATE: 12/14/2024 12:53 INDICATION: Nontoxic goiter. TECHNIQUE: Multiple ultrasound images of the thyroid were obtained. COMPARISON: None. FINDINGS: The right thyroid lobe measures 4.6 x 1.8 x 1.5 cm. The left thyroid lobe measures 4.4 x 1.4 x 1.5 c m. The thyroid demonstrates heterogeneous hypoechogenicity and increased vascularity. No discrete no dule. IMPRESSION: 1. Heterogeneous, hypervascular thyroid, consistent with chronic lymphocytic ([place]) thyroiditis. Reviewed, dictated and finalized at location A. TAGE CONSULTANT IMPRESSION: 1. Heterogeneous, hypervascular thyroid, consistent with chronic lymphocytic (H ashimoto) thyroiditis.
== END 2024-12-14 11:54 | disposition home or self-care (01) ==
PROVIDERS: PCP Internal Medicine Endocrinology, Diabetes & Metabolism; Visit Provider Internal Medicine Endocrinology, Diabetes & Metabolism
DX: E04.9 Nontoxic goiter, unspecified (principal)
CPT/HCPCS: 76536

== ENCOUNTER 2025-03-23 11:26 | Outpatient (CLI) | payer BC, SELFPAY ==
--- NOTE | ~2025-03-23 | CT_ITS ---
Non-contrast CT scan of the Abdomen Clinical indication: Disorder adrenal gland Technique: 2.5 mm axial scans were obtained through the abdomen without intravenous or oral contrast . Dose reduction technique was used on this scan by utilizing automated exposure control and iterativ e reconstruction technique. The dose-length product (DLP) was 346.42 mGy-cm. Findings: Images through the lung bases reveal 3 mm left lower lobe pulmonary nodule (axial image 11 ). There is no evidence of renal or ureteral calculi. The kidneys and the ureters are nondilated. The liver, spleen, pancreas, gallbladder, and adrenals appear normal. There is no aortic aneurysm. Visualized bowel loops are unremarkable. No ascites. Impression: No adrenal abnormality seen. 3 mm left lower lobe pulmonary nodule, most likely benign. Consider 12 month follow-up exam for a hig h-risk patient. Reviewed, dictated and finalized at [facility]. Impression: No adrenal abnormality seen. 3 mm left lower lobe pulmonary nodule, most likely benign. Consider 12 month fo llow-up exam for a high-risk patient.
== END 2025-03-23 11:27 | disposition home or self-care (01) ==
LOC: MICIMG 11:28
PROVIDERS: PCP Internal Medicine Endocrinology, Diabetes & Metabolism; Visit Provider Internal Medicine Endocrinology, Diabetes & Metabolism
DX: R91.1 Solitary pulmonary nodule (principal); E27.9 Disorder of adrenal gland, unspecified
CPT/HCPCS: 74150